=== PATIENT | female | born 1990 | race Caucasian/White ===

== ENCOUNTER 2020-12-07 22:06 | Emergency (ER) | payer OTHER ==
[2020-12-07 22:39] LABS: Bilirubin Neg (Negative); Blood, Urine 250 (Negative); Clarity Cloudy (Clear); Glucose, Urine (Dipstick) Normal (Negative); Ketone, Urine Negative (Negative); Leukocyte Negative (Negative); Nitrite Negative (Negative); Protein, Urine (Dipstick) Negative (Neg-Trace); Specific Gravity, Urine 1.015 (1.002-1.036); Urobilinogen Normal mg/dL (Less than 2)
[2020-12-07 22:46] LABS: Bacteria/HPF None Seen HPF (None Seen); Mucous/LPF Rare LPF (<2+); Squamous Epithelial 0-3 HPF (0-3); WBC/HPF 0-3 HPF (0-3)
== END 2020-12-08 01:16 | disposition home or self-care (01) ==
LOC: CSHERS 22:06
DX: O20.9 Hemorrhage in early pregnancy, unspecified (principal); Z3A.14 14 weeks gestation of pregnancy
CPT/HCPCS: 36415; 81003; 81015; 84702; 86900; 86901; 87086

== ENCOUNTER 2022-01-29 10:13 | Inpatient (IN) | payer BC, OTHER ==
[~2022-01-29 10:13] MED LIST: Acetaminophen 500 MG TAB PO PRN; Bicitra 30 ML UDCUP PO PRN; Butorphanol Tartrate 1 MG/ML VIAL SLOW IVP PRN; Famotidine/PF 20 mg/2ml Vial SLOW IVP PRN; Lactated Ringer's 1,000 ML IV SCH; Ondansetron PF 4 MG/2 ML Vial IVP PRN; Promethazine HCl 25 MG/ML VIAL IM PRN; ceFAZolin 2 GM/Dextrose 50 ML 2 GM in Premix Bag 1 BAG IVPB SCH; hydrALAZINE 20 MG/ML VIAL SLOW IVP PRN
[2022-01-29 11:19] VITALS: BMI 36.0
[2022-01-29 11:26] LABS: Hemoglobin 10.6 g/dL (12.0-15.5); Mean Corpuscular HGB CONC 33.3 g/dL (32.0-36.0); Mean Corpuscular Hemoglobin 30.3 pg (27.0-33.0); Mean Corpuscular Volume 90.9 fl (81.6-98.3); Platelet Count 210 10x3/uL (150-450); RBC Distribution Width 14.8 % (11.5-14.5); White Blood Cell (WBC) Count 7.1 10x3/uL (3.5-10.5)
[2022-01-29 12:13] LABS: Hep B Surf Ag Non-Reactive S/CO (NonReactive)
[2022-01-29 12:14] LABS: Syphilis Antibody Nonreactive (Nonreactive); Syphilis Antibody Index 0.04 S/CO (<1.00 Non-Reactive)
[2022-01-29 12:17] LABS: HBSAg Index 0.14 S/CO (0-0.99)
[2022-01-29] MEDS ORDERED: Phenylephrine 40 MG/NS 250 ML 250 ML ONE (12:18)
[2022-01-29] MEDS ORDERED: ePHEDrine Sulfate 50 MG/10 ML VIAL ONE (12:18)
[2022-01-29] MEDS ORDERED: Morphine PF 10 MG/10 ML VIAL ONE (12:18)
[2022-01-29] MEDS ORDERED: Ondansetron PF 4 MG/2 ML Vial ONE (12:18)
[2022-01-29] MEDS ORDERED: Oxytocin 10 UNITS/ML VIAL ONE ×2 (12:19→13:35)
[2022-01-29] MEDS ORDERED: PHENYLEPHRINE-NS 100 MCG/ML 10 ML SYRINGE ONE (12:19)
[2022-01-29] MEDS ORDERED: Ketorolac Tromethamine 30 MG/ML VIAL ONE (12:19)
[2022-01-29] MEDS ORDERED: CEFAZOLIN 2 GM VIAL ONE (12:23)
[2022-01-29] MEDS ORDERED: Famotidine/PF 20 mg/2ml Vial ONE (12:24)
[2022-01-29] MEDS ORDERED: Fentanyl 100 MCG/2 ML VIAL SLOW IVP PRN (12:26)
[2022-01-29] MEDS ORDERED: Meperidine HCl/PF 25 MG/ML VIAL SLOW IVP PRN (12:26)
[2022-01-29] MEDS ORDERED: diphenhydrAMINE 50 MG/ML VIAL IVP PRN (12:26)
[2022-01-29] MEDS ORDERED: Promethazine HCl 25 MG SUPP PR PRN (12:26)
[2022-01-29] MEDS ORDERED: Promethazine HCl 25 MG/ML VIAL IM PRN ×2 (12:26→16:40)
[2022-01-29] MEDS ORDERED: Moisturizing Cream (Eucerin) 113 GM JAR TOP PRN (12:26)
[2022-01-29] MEDS ORDERED: Naloxone HCl 0.4 mg/ml Vial IV PRN (12:26)
[2022-01-29] MEDS ORDERED: Ondansetron PF 4 MG/2 ML Vial IVP PRN ×2 (12:26→16:40)
[2022-01-29] MEDS ORDERED: Naloxone HCl 0.4 mg/ml Vial IVP PRN ×2 (12:26)
[2022-01-29] MEDS ORDERED: Ondansetron HCl/PF 4 MG/2 ML Vial IVP PRN (12:26)
[2022-01-29] MEDS ORDERED: Communication Order-Pharmacy FS SCH (12:30)
[2022-01-29] MEDS ORDERED: Midazolam HCl 2 mg/2 ml Vial ONE (13:04)
[2022-01-29] MEDS ORDERED: Simethicone Chewable 80 MG TAB PO PRN (16:40)
[2022-01-29] MEDS ORDERED: Boostrix 0.5 ML (Tdap) VIAL IM ONE (16:40)
[2022-01-29] MEDS ORDERED: Methylergonovine 0.2 MG/ML VIAL IM PRN (16:40)
[2022-01-29] MEDS ORDERED: Lanolin Ointment 7 GM TUBE TOP PRN (16:40)
[2022-01-29] MEDS ORDERED: hydrALAZINE 20 MG/ML VIAL SLOW IVP PRN (16:40)
[2022-01-29] MEDS ORDERED: NS w/ Oxytocin 30 units 500 ML IV SCH (16:40)
[2022-01-29] MEDS ORDERED: diphenhydrAMINE 25 MG CAP PO PRN (16:40)
[2022-01-29] MEDS ORDERED: Bisacodyl 10 MG SUPP PR PRN (16:40)
[2022-01-29] MEDS ORDERED: Misoprostol 200 MCG TAB PR PRN (16:40)
[2022-01-29] MEDS ORDERED: Morphine 2 MG/ML VIAL SLOW IVP SCH (17:30)
[2022-01-29] MEDS ORDERED: Ketorolac Tromethamine 30 MG/ML VIAL IVP SCH (18:30)
[2022-01-29] MEDS: Ketorolac Tromethamine 30 MG/ML VIAL IVP PRN (23:33)
[2022-01-30] MEDS: Ferrous Sulfate 325 MG TAB PO SCH ×3 (02:09→22:32)
[2022-01-30] MEDS: HYDROcodone/Acetaminophen 5/325 mg Tablet PO PRN ×6 (02:12→22:37)
[2022-01-30] MEDS: Ketorolac Tromethamine 30 MG/ML VIAL IVP PRN (05:54)
[2022-01-30 06:35] LABS: Hemoglobin 8.3 g/dL (12.0-15.5); Mean Corpuscular Hemoglobin 30.4 pg (27.0-33.0); Mean Corpuscular Volume 89.4 fl (81.6-98.3); Platelet Count 152 10x3/uL (150-450); Red Blood Cell (RBC) Count 2.73 10x6/uL (3.90-5.03); White Blood Cell (WBC) Count 6.8 10x3/uL (3.5-10.5)
[2022-01-30] MEDS: Prenatal Vitamin 1 TAB PO SCH (08:54)
[2022-01-30] MEDS: Ibuprofen 800 MG TAB PO SCH ×2 (13:54→22:32)
[2022-01-31] MEDS: Ibuprofen 800 MG TAB PO SCH ×2 (05:49→14:03)
[2022-01-31] MEDS: HYDROcodone/Acetaminophen 5/325 mg Tablet PO PRN ×3 (05:50→14:04)
[2022-01-31 08:10] VITALS: BP 123/88; TEMP 98.5
[2022-01-31] MEDS: Ferrous Sulfate 325 MG TAB PO SCH (09:53)
[2022-01-31] MEDS: Prenatal Vitamin 1 TAB PO SCH (09:53)
== END 2022-01-31 15:30 | disposition home or self-care (01) | DRG 787 ==
LOC: CSHLD 10:13 → CSHPP 16:40
PROVIDERS: ADMIT Obstetrics & Gynecology; ATTEND Obstetrics & Gynecology
PROC: 10D00Z1 Extraction of Products of Conception, Low, Open Approach (ICD-10-PCS; principal; 2022-01-30)
DX: O34.211 Maternal care for low transverse scar from previous cesarean delivery (principal); O10.92 Unspecified pre-existing hypertension complicating childbirth; Z3A.38 38 weeks gestation of pregnancy; Z37.0 Single live birth; Z20.822 Contact with and (suspected) exposure to COVID-19
CPT/HCPCS: 36415; 85027; 86780; 86850; 86900; 86901; 87340; J1885; J2250; J2270; J2274; J2405; J2590; U0003; U0005